=== PATIENT | male | born 1980 | race Caucasian/White ===

== ENCOUNTER 2018-05-15 20:05 | Observation (INO) ==
[2018-05-15 20:51] LABS: Basophils % 0.6 % (0.0-0.8); Eosinophils # 0.1 10*3/uL (0.0-0.87); Eosinophils % 2.3 % (0.00-10.9); Hematocrit 33.1 VOL% (42.0-52.0); Hemoglobin 10.5 GM/DL (14.0-18.0); Immature Granulocytes % 0.6 %; Immature Granulocytes Absolute 0.03 #; Lymphocytes # 0.9 10*3/uL (1.4-4.0); Lymphocytes % 19.1 % (21.2-54.2); Mean Corpuscular HGB Conc 31.7 GM/DL (32-36); Mean Corpuscular Hemoglobin 29 PG (27-34); Mean Corpuscular Volume 90.9 FL (87-102); Mean Platelet Volume 9.7 FL (9.6-12.0); Monocytes # 0.3 10*3/uL (0.11-0.8); Monocytes % 6.7 % (1.7-12.7); Neutrophils # 3.4 10*3/uL (1.4-7.4); Neutrophils % 70.7 % (38.7-73.9); Platelet Count 94 T/CUMM (130-400); Red Blood Count 3.64 MC/CUMM (3.8-5.5); White Blood Count 4.8 T/CUMM (4-12)
[2018-05-15] MEDS ORDERED: ONDANSETRON 4 MG/2 ML VIAL IV STA (20:55)
[2018-05-15] MEDS ORDERED: HYDROmorphone 2 MG/1 ML VIAL IV STA (20:55)
[2018-05-15] MEDS ORDERED: SODIUM CHLORIDE 0.9% 1,000 ML IV STA (21:10)
[2018-05-15 21:16] LABS: Albumin 2.9 G/DL (3.4-5.0); Bilirubin,Total 0.9 MG/DL (0.2-1.0); Calcium 8.2 MG/DL (8.5-10.1); Osmolality,Calculated 281.1 MOS/KG (273-304); Potassium 3.6 MMOL/L (3.5-5.1); Total Protein 7.2 G/DL (6.4-8.3)
[2018-05-15 21:23] LABS: Hypochromasia Slight; Microcytosis Slight
[2018-05-15 21:24] LABS: Polychromasia Few
[2018-05-15 21:25] LABS: Ovalocytes Few
[2018-05-15 21:26] LABS: Platelet Estimate Normal
[2018-05-15 21:34] LABS: PT Patient Result 10.4 SECS; Partial Thromboplastin Time 24.7 SECS (0-40)
[2018-05-15] MEDS ORDERED: MAGNESIUM HYDROXIDE SUSP 30 ML UDCUP PO PRN ×2 (21:43→23:25)
[2018-05-15] MEDS ORDERED: ONDANSETRON 4 MG/2 ML VIAL IV PRN (21:43)
[2018-05-15] MEDS: LACTATED RINGERS 1,000 ML IV SCH (22:37)
[2018-05-15 22:55] LABS: Basophils % 0.5 % (0.0-0.8); Eosinophils # 0.1 10*3/uL (0.0-0.87); Eosinophils % 0.8 % (0.00-10.9); Hematocrit 30.4 VOL% (42.0-52.0); Hemoglobin 9.5 GM/DL (14.0-18.0); Immature Granulocytes % 0.5 %; Immature Granulocytes Absolute 0.03 #; Lymphocytes # 0.7 10*3/uL (1.4-4.0); Lymphocytes % 11.1 % (21.2-54.2); Mean Corpuscular HGB Conc 31.3 GM/DL (32-36); Mean Corpuscular Hemoglobin 28 PG (27-34); Mean Corpuscular Volume 90.7 FL (87-102); Mean Platelet Volume 9.6 FL (9.6-12.0); Monocytes # 0.3 10*3/uL (0.11-0.8); Neutrophils # 5.1 10*3/uL (1.4-7.4); Neutrophils % 82.1 % (38.7-73.9); Platelet Count 89 T/CUMM (130-400); Red Blood Count 3.35 MC/CUMM (3.8-5.5); Red Cell Distribution Width 15.1 % (9.3-17.3); White Blood Count 6.2 T/CUMM (4-12)
[2018-05-15 23:14] LABS: Albumin 2.7 G/DL (3.4-5.0); Bilirubin,Total 0.8 MG/DL (0.2-1.0); Calcium 7.7 MG/DL (8.5-10.1); Osmolality,Calculated 282.1 MOS/KG (273-304); Potassium 3.9 MMOL/L (3.5-5.1); Total Protein 6.8 G/DL (6.4-8.3)
[2018-05-15] MEDS ORDERED: LORazepam 2 MG/1 ML VIAL IV PRN (23:25)
[2018-05-16] MEDS: HYDROmorphone 2 MG/1 ML VIAL IV PRN ×6 (03:36→16:50)
[2018-05-16] MEDS: LACTATED RINGERS 1,000 ML IV SCH ×2 (08:53→22:01)
[2018-05-16] MEDS ORDERED: PROMETHAZINE INJ 25 MG in SODIUM CHLORIDE 0.9% 50 ML IV PRN (13:51)
[2018-05-16] MEDS ORDERED: ONDANSETRON 4 MG/2 ML VIAL IV PRN (13:51)
[2018-05-16] MEDS ORDERED: diphenhydrAMINE 50 MG/1 ML VIAL IV PRN (13:51)
[2018-05-16] MEDS ORDERED: ceFAZolin 1,000 MG VIAL ONE ×2 (14:58→15:17)
[2018-05-16] MEDS ORDERED: PROMETHAZINE 25 MG/1 ML VIAL ONE (16:01)
[2018-05-16] MEDS ORDERED: ONDANSETRON 4 MG/2 ML VIAL ONE ×2 (16:01→16:31)
[2018-05-16] MEDS ORDERED: MEPERIDINE 25 MG/1 ML VIAL ONE ×2 (16:01)
[2018-05-16] MEDS: MEPERIDINE 25 MG/1 ML VIAL IV PRN ×2 (16:20→16:30)
[2018-05-16] MEDS ORDERED: HYDROmorphone 2 MG/1 ML VIAL ONE ×2 (16:30→16:40)
[2018-05-16] MEDS ORDERED: SEVOFLURANE 1 UNIT/15 MINUTE INH ONE (16:30)
[2018-05-16] MEDS ORDERED: PROPOFOL 200 MG/20 ML VIAL IV ONE (16:30)
[2018-05-16] MEDS ORDERED: LACTATED RINGERS 1,000 ML IV ONE (16:31)
[2018-05-16] MEDS ORDERED: fentaNYL 100 MCG/2 ML VIAL ONE (16:31)
[2018-05-16] MEDS ORDERED: MIDAZOLAM 2 MG/2 ML VIAL ONE (16:31)
[2018-05-16] MEDS ORDERED: DEXAMETHASONE 10 MG/1 ML VIAL ONE (16:31)
[2018-05-16] MEDS ORDERED: MEPERIDINE 50 MG/1 ML VIAL IM PRN (16:33)
[2018-05-17] MEDS: LACTATED RINGERS 1,000 ML IV SCH ×2 (08:06→18:28)
[2018-05-18 12:57] VITALS: BP 124/69
== END 2018-05-18 16:03 | disposition home or self-care (01) ==
LOC: EDUNIT# → EDBD → N.EDINP 20:05 → N.ED 20:05 → N.3E 22:03 → N.4E 05-17 18:23
PROVIDERS: ADMIT Orthopaedic Surgery; ATTEND Orthopaedic Surgery